=== PATIENT | male | born 1965 | race Caucasian/White ===

== ENCOUNTER 2020-10-25 13:00 | Emergency (ER) | payer OTHER ==
[~2020-10-25] VITALS: Ht 172.7 cm; Wt 70.0 kg
[2020-10-25 14:00] LABS: BASOPHILS % (AUTO) 0 % (0-1); EOSINOPHILS % (AUTO) 2 % (1-7); LYMPHOCYTES % (AUTO) 35 % (22-44); MEAN CORPUSCULAR HEMOGLOBIN 28.1 pg (27.5-34.5); MEAN CORPUSCULAR HGB CONC 33.4 g/dL (33.2-36.2); MEAN PLATELET VOLUME 8.8 fL (7.4-10.4); MONOCYTES % (AUTO) 8 % (2-9); NEUTROPHILS % (AUTO) 55 % (42-75); PLATELET COUNT 221 x10^3/uL (130-400); RED CELL DISTRIBUTION WIDTH 14.4 % (9.4-14.8)
[2020-10-25 14:04] LABS: ALBUMIN 3.8 g/dL (3.4-5.0); ANION GAP 5 mmol/L (5-15); CALCIUM 8.8 mg/dL (8.5-10.1); CHLORIDE 110 mmol/L (98-107); CREATININE 0.78 mg/dL (0.7-1.3)
--- NOTE | 2020-10-25 14:04 | NUR ---
PT STATES HIS HR IS USUALLY IN HIGH 40s. PIV PLACED BY [employer] G[employer] AND LABS DRAWN. PT CONNECTED TO ALL MONITORING. CALL LIGHT IN REACH.
[2020-10-25 14:08] LABS: TROPONIN I < 0.015 ng/mL (0.000-0.045)
[2020-10-25] MEDS ORDERED: OMNIPAQUE 350 MG/ML, 75ML BOTTLE ONE (14:37)
--- NOTE | 2020-10-25 14:50 | NUR ---
ALL RESULTS ARE BACK AT THIS TIME. CHART UP FOR RECHECK.
[2020-10-25 15:56] VITALS: BP 122/79
== END 2020-10-25 16:04 | disposition home or self-care (01) ==
LOC: ED 14:51
DX: R07.89 Other chest pain (principal); R00.1 Bradycardia, unspecified; Z86.711 Personal history of pulmonary embolism
CPT/HCPCS: 36415; 71275; 80048; 82040; 84484; 85025; 93005; 99285; Q9967